=== PATIENT | female | born 1975 | race African-American/Black ===

== ENCOUNTER 2020-03-09 14:00 | Outpatient (CLI) | payer OTHER | END 2020-03-09 15:00 | disposition home or self-care (01) | LOC: MAMO-SONO 14:00 | PROVIDERS: ATTEND Obstetrics & Gynecology | DX: N60.02 Solitary cyst of left breast (principal); N60.01 Solitary cyst of right breast; Z12.31 Encounter for screening mammogram for malignant neoplasm of breast; R10.2 Pelvic and perineal pain; N92.1 Excessive and frequent menstruation with irregular cycle; N64.4 Mastodynia; N64.59 Other signs and symptoms in breast ==